=== PATIENT | female | born 1995 | race Caucasian/White ===

== ENCOUNTER 2025-05-04 10:04 | Inpatient (IN) | payer OTHER, SELFPAY ==
[2025-05-04 10:44] VITALS: BP 117/68; BMI 33.4
[2025-05-04] MEDS: LR 1000 IV ×2 (10:54→16:55)
[2025-05-04 10:56] LABS: Hematocrit 34.2 % (37.0-47.0); Hemoglobin 11.7 g/dL (12.0-16.0); Mean Corp Hgb Conc. 34.2 g/dL (33.0-37.0); Mean Corpuscular Volume 89.8 fL (81.0-99.0); Platelet Count 191 10^3/uL (130-400); Red Cell Dist. Width 13.4 % (11.5-14.5)
[2025-05-04] MEDS: TYLENOL 975 MG PO (11:02)
[2025-05-04] MEDS: ANCEF 10 IV (12:00)
[2025-05-04] MEDS: BICITRA 30 ML PO (12:00)
[2025-05-04] MEDS: TRANEXAMIC ACID 100 IV (13:08)
[2025-05-04] MEDS: PITOCIN 30 UNITS/NSS 500 ML IV (13:10)
[2025-05-04] MEDS: ZOFRAN 4 MG IV (14:40)
[2025-05-04] MEDS: BENADRYL 25 MG IV (14:41)
[2025-05-04] MEDS: TORADOL 15 MG IV (20:11)
[2025-05-05] MEDS: COLACE PO (01:10)
[2025-05-05] MEDS: TORADOL 15 MG IV ×3 (02:14→14:21)
[2025-05-05 05:59] LABS: Hematocrit 26.3 % (37.0-47.0); Hemoglobin 8.9 g/dL (12.0-16.0); Mean Corp Hgb Conc. 33.8 g/dL (33.0-37.0); Mean Corpuscular Volume 87.4 fL (81.0-99.0); Platelet Count 142 10^3/uL (130-400); Red Cell Dist. Width 13.5 % (11.5-14.5)
--- NOTE | 2025-05-05 07:47 | W.PN.ANS.POP ---
Anesthesia Post Operative
- Anesthesia Post Op Note
Vital Signs Stable-See Nursing Note: Yes
Airway Patent: Yes
Adequate Pain Control: Yes
Change in Mental Status: No
Current Postoperative Nausea & Vomiting: No
Anesthesia Complications: No
General Anesthetic Recall: No
Unplanned Admission: No
Post Op Hydration Adequate: Yes
[2025-05-05] MEDS: COLACE 100 MG PO ×2 (08:22→20:39)
[2025-05-05] MEDS: PRENATAL PLUS 1 TABLET PO (08:22)
[2025-05-05] MEDS: FEOSOL 325 MG PO (14:25)
[2025-05-05] MEDS: TYLENOL 650 MG PO (20:39)
[2025-05-05] MEDS: MOTRIN 600 MG PO (20:40)
[2025-05-06] MEDS: MOTRIN 600 MG PO ×3 (02:56→16:03)
[2025-05-06] MEDS: TYLENOL 650 MG PO ×4 (02:57→20:13)
[2025-05-06] MEDS: COLACE 100 MG PO ×2 (09:22→20:13)
[2025-05-06] MEDS: FEOSOL 325 MG PO (09:22)
[2025-05-06] MEDS: PRENATAL PLUS 1 TABLET PO (09:23)
[2025-05-07] MEDS: TYLENOL 650 MG PO ×2 (04:12→08:05)
[2025-05-07] MEDS: MOTRIN 600 MG PO (04:12)
[2025-05-07] MEDS: COLACE 100 MG PO (08:06)
[2025-05-07] MEDS: FEOSOL 325 MG PO (08:06)
[2025-05-07] MEDS: PRENATAL PLUS 1 TABLET PO (08:06)
[2025-05-07 13:41] LABS: Syphilis/T. pallidum Ab Reflex Negative (Negative)
== END 2025-05-07 11:30 | disposition home or self-care (01) | DRG 788 ==
LOC: LDRP 10:04
PROVIDERS: ADMITTING PHYSICIAN Obstetrics & Gynecology
PROC: 10D00Z1 Extraction of Products of Conception, Low, Open Approach (ICD-10-PCS; 2025-05-04)
PROC: 0HB7XZZ Excision of Abdomen Skin, External Approach (ICD-10-PCS; 2025-05-04)
DX: O34.211 Maternal care for low transverse scar from previous cesarean delivery (principal); N85.8 Other specified noninflammatory disorders of uterus; Z3A.39 39 weeks gestation of pregnancy; Z37.0 Single live birth; L91.0 Hypertrophic scar; O99.72 Diseases of the skin and subcutaneous tissue complicating childbirth
CPT/HCPCS: 36415; 85027; 86780; 86850; 86900; 86901